=== PATIENT | male | born 1970 | race Caucasian/White ===

== ENCOUNTER 2018-06-16 06:29 | Inpatient (IN) | payer BC, OTHER ==
[2018-06-10 15:10] VITALS: BMI 35.7
[~2018-06-16 06:29] MED LIST: CEFAZOLIN 2 GM/D5W 2 GM/50 ML ML IVPB ONE; oxyCODONE HCL 10 MG SUSTAINED ACTING TABLET PO STA
[2018-06-16] MEDS ORDERED: oxyCODONE HCL 10 MG SUSTAINED ACTING TABLET ONE (06:59)
[2018-06-16] MEDS ORDERED: LIDOCAINE 1%/EPI 1:100000 (20 ML MULTI DOSE VIAL) ONE (07:11)
[2018-06-16] MEDS ORDERED: THROMBIN (BOVINE) 5,000 UNIT VIAL TP ONE ×3 (07:11→10:50)
[2018-06-16] MEDS ORDERED: GELATIN, ABSORBABLE 100 EACH SPONGE TP ONE (07:11)
--- NOTE | 2018-06-16 07:28 | HP ---
History & Physical Update - History History: No Change - Physical Physical: No Change - Assessment Assessment: No Change - Plan Plan: No Change (Initial H&P is located in his paper chart. No new complaints or medications. Here today for elective L5-S1 TLIF.)
[2018-06-16] MEDS ORDERED: SEVOFLURANE 250 ML BTL ONE (07:37)
[2018-06-16] MEDS ORDERED: BUPIVACAINE HCL/PF 0.5% (5MG/ML) 10 ML VIAL ONE (07:37)
[2018-06-16] MEDS ORDERED: ceFAZolin SODIUM 1 GM VIAL ONE ×2 (07:46→15:04)
[2018-06-16] MEDS ORDERED: SODIUM CHLORIDE 0.9% P/F 10 ML VIAL IJ ONE (07:46)
[2018-06-16] MEDS ORDERED: ONDANSETRON 4 MG/2 ML VIAL ONE (07:46)
[2018-06-16] MEDS ORDERED: DEXAMETHASONE SOD PHOSPHATE 4 MG/1 ML VIAL ONE (07:46)
[2018-06-16] MEDS ORDERED: BUPIVACAINE LIPOSOME/PF (EXPAREL) 266 MG/20 ML VIAL ONE (08:02)
[2018-06-16] MEDS ORDERED: BUPIVACAINE HCL/PF (5 MG/ML) 30 ML VIAL IJ ONE (08:02)
[2018-06-16] MEDS ORDERED: MIDAZOLAM HCL 2 MG/2 ML SINGLE DOSE VIAL ONE (08:02)
[2018-06-16] MEDS ORDERED: PROPOFOL 20 ML ONE (09:56)
[2018-06-16] MEDS ORDERED: LABETALOL HCL 5 MG/1 ML (100MG/20 ML VIAL) ONE (10:00)
[2018-06-16] MEDS ORDERED: BUPIVACAINE HCL 0.25% 125 MG/50 ML VIAL ONE (10:38)
[2018-06-16] MEDS ORDERED: DEXAMETHASONE SOD PHOSPHATE/PF 10 MG/ML SDV ONE (10:43)
[2018-06-16] MEDS ORDERED: oxyCODONE HCL 5 MG TABLET PO PRN ×3 (11:24→11:39)
[2018-06-16] MEDS ORDERED: ONDANSETRON 4 MG/2 ML VIAL IVPUSH PRN (11:24)
[2018-06-16] MEDS ORDERED: LACTATED RINGERS SOLUTION 1,000 ML IV SCH ×2 (11:30→11:45)
--- NOTE | 2018-06-16 11:37 | OP ---
Operative Note - Note: Operative Date: 06/16/18 Pre-Operative Diagnosis: L5/S1 spondylolithesis Operation: L5/S1 TLIF, allograft implant, neuromonitoring Post-Operative Diagnosis: Same as Pre-op Surgeon: Mohan Soler Helicopter Repairer: Wilman Cabello Anesthesiologist/DIVER ASSISTANT: Johnathon Jacques Anesthesia: Spinal Estimated Blood Loss (mls): 25 Fluid Volume Replaced (mls): 800 Operative Report Dictated: Yes
--- NOTE | 2018-06-16 11:38 | SURG ---
Surgery Asbestos Cement Sheet Supervisor Note Asbestos Cement Sheet Supervisor: Wilman Cabello PA-C Date of Service: 06/16/18 Diagnosis: L5/S1 spondylolithesis, with radiculopathy Procedure: L5/S1 TLIF, allograft implant and neuromonitoring I was present for the entirety of the operative procedure. For further detail, please refer to operative report. Visit type - Case Type Case Type: Scheduled - New patient This patient is new to me today: Yes Date on this admission: 06/16/18
--- NOTE | 2018-06-16 13:13 | OP ---
DATE OF OPERATION: 06/16/2018 PREOPERATIVE DIAGNOSES: 1. Spondylolisthesis, L5-S1. 2. Spinal stenosis. POSTOPERATIVE DIAGNOSES: 1. Spondylolisthesis, L5-S1. 2. Spinal stenosis. PROCEDURE PERFORMED: 1. Transforaminal lumbar interbody fusion, L5-S1. 2. Placement of instrumentation. 3. Placement of prosthetic cage. SURGEON: Mohan Soler MD INSURANCE BUSINESS ANALYST: RICHA Mckenzie ESTIMATED BLOOD LOSS: 50 mL. INTRAVENOUS FLUID: Per Anesthesia. ANESTHESIA: Spinal/TLIP. COMPLICATIONS: There were none. DISPOSITION: Patient brought to the PACU in stable condition. INDICATIONS FOR SURGERY: The patient is a 47-year-old gentleman who has been suffering from pain from his back down his legs. X-rays and MRI were completed, which noted that he had a spondylolisthesis at L5-S1 with stenosis at that level. He had gone through an exhaustive course of treatment which included medications, physical therapy, as well as injections. Unfortunately, his pain continued to persist despite all this. At this point, risks, benefits, and alternatives were discussed, and the patient consented to surgery. OPERATIVE NOTE: Patient was brought to the operating room by anesthesia staff. After appropriate patient identification was performed, spinal anesthesia was given along with a TLIP block. Patient was able to position himself prone onto the OR table with all areas of bony prominences well-padded at this time. Two needles were placed in his back. The L5-S1 pedicles were marked off with C-arm. Lidocaine, 10 mL, with epinephrine was injected into the back at this time. His back was prepped and draped in a sterile manner. At this point, a time-out was completed. An incision was made from the top of L5 down to the bottom of S1. Dissection was carried down to the fascia. Fascia was then split open at this time. The C-arm was brought in, and under C-arm guidance, trocars were advanced above the L5-S1 pedicles. Through the trocar, wires were inserted. Over the wires, tap was performed, which was inserted. On the left-hand side, retractor blades were set up to expose the L5-S1 facet joint. The facet joint was removed. The disc was entered using a series of pituitary, Kerrison rongeurs, and curettes. The discectomy was completed. The endplates were decorticated. Bone graft was laid down. A cage filled with bone graft was placed in. Tulip heads were placed over the screws. A ana was measured and placed in. Capsule was placed on, and final tightening was performed. On the right-hand side, a ana was measured and placed in. Capsule was placed on, and compression and final tightening was performed. AP and lateral x-rays confirmed the instrumentation to be in good position. The fascia was closed with a No. 1 Vicryl suture. The subcutaneous tissues were closed with 2-0 Vicryl suture. Skin was closed with 3-0 Monocryl suture. Dermabond was applied. Steri-Strips were applied. Sterile dressings were applied. Patient was placed supine on the OR bed and brought to the PACU in stable condition. Yecenia WILEY/[id number]
[2018-06-16 13:24] VITALS: TEMP 98.1
[2018-06-16] MEDS ORDERED: oxyCODONE HCL 5 MG TABLET ONE (14:51)
[2018-06-16] MEDS ORDERED: CEFAZOLIN 2 GM/D5W 2 GM/50 ML ML IVPB ONE (16:00)
[2018-06-16 16:42] VITALS: BP 155/90; PULSE 75
[2018-06-16] MEDS ORDERED: traMADol HCL 50 MG TABLET PO SCH (18:00)
[2018-06-16] MEDS ORDERED: diazePAM 2 MG TABLET PO SCH (22:00)
[2018-06-16] MEDS ORDERED: LABETALOL HCL 200 MG TABLET (FP) PO SCH (22:00)
[2018-06-16] MEDS ORDERED: MINOXIDIL 2.5 MG TABLET PO SCH (22:00)
[2018-06-17] MEDS ORDERED: FUROSEMIDE 40 MG TABLET (FP) PO SCH (10:00)
== END 2018-06-16 16:30 | disposition home or self-care (01) | DRG 304 ==
LOC: FM/S 06:29
PROVIDERS: ADMIT Orthopaedic Surgery Orthopaedic Surgery of the Spine; ATTEND Orthopaedic Surgery Orthopaedic Surgery of the Spine
PROC: 0SG30AJ Fusion of Lumbosacral Joint with Interbody Fusion Device, Posterior Approach, Anterior Column, Open Approach (ICD-10-PCS; principal; 2018-06-16 09:59)
DX: M43.17 Spondylolisthesis, lumbosacral region (principal); M48.07 Spinal stenosis, lumbosacral region; M54.17 Radiculopathy, lumbosacral region
CPT/HCPCS: 72100-TC-FY; 76001-TC-FY; 94760

== ENCOUNTER 2018-06-18 12:15 | Inpatient (IN) | payer OTHER ==
--- NOTE | 2018-06-18 12:23 | PDOC ---
Attending Attestation - Resident Resident Name: Lisa Garrido - ED Attending Attestation I have performed the following: I have examined & evaluated the patient, The case was reviewed & discussed with the resident, I agree w/resident's findings & plan, Exceptions are as noted - HPI HPI: 06/18/18 15:04 Worsening leg pain after outpatient spinal fusion 2 days ago. Pain is most prominent in the thighs bilaterally. Suggestive of muscle spasm. No back pain. No bowel or bladder symptoms, including incontinence or retention. No saddle anesthesia. Subjective muscle weakness in the legs making it impossible for him to bear weight and ambulate. - Physicial Exam PE: 06/18/18 15:06 Physical exam reveals somewhat anxious male but in no pain or other distress at rest, lying in stretcher. Examination of the back reveals no tenderness swelling erythema or other sign of inflammation of the lumbosacral spine There is no demonstrable sensory or motor deficit to either of the lower extremities. All symptoms are subjective Pulses are full Even after analgesics, the patient is still unable to stand or walk - Medical Decision Making 06/18/18 13:32 Spoke to surgeon, Dr. Martinez, by phone. Discussed the lack of neurological findings on examination, though it was emphasized that the patient's level of cooperation was limited and therefore the exam may not have produced completely accurate information. It was decided to do a CT and further evaluate depending on the results. We'll discuss again after the above results become available 06/18/18 15:07 Impression: CT is negative except for what appear to be chronic disc herniations and spinal stenosis. The hardware is intact. There is no obvious hematoma or abscess compressing the nerves or spine or over, contrast was not used. This was discussed with the surgeon Dr. Martinez. Plan: Because of intractable pain in the upper inability to bear weight or ambulate, admitted for pain control and further evaluation and treatment.
--- NOTE | 2018-06-18 12:24 | PDOC ---
History of Present Illness - General Chief Complaint: Pain Stated Complaint: BIBA PAIN TO LEGS, DIFF WALKING Time Seen by Provider: 06/18/18 12:24 History Source: Patient Exam Limitations: No Limitations - History of Present Illness Initial Comments: 06/18/18 12:45 48 year old male with PMH HTN s/p spinal fusion surgery x2 days ago presents to ED for bilateral lower extremity pain and weakness/numbness/tingling x2 days. He states he has had trouble walking on his own and cannot bear weight. He states he has not had a bowel movement since before the surgery. He denies fever , chills, nausea/vomiting, abdominal pain, urinary incontinence, genital numbness/tingling, chest pain, shortness of breath, lightheadedness, dizziness. He states he last took Valium 2 mg and 1 Percocet at 1000 today without relief of his symptoms. He stated yesterday he contacted Dr. Soler, who did the surgery, and he switched him from Toradol to Percocet. Allergies - NKDA Past History - Past Medical History Allergies/Adverse Reactions: Allergies Allergy/AdvReac Type Severity Reaction Status Date / Time No Known Allergies Allergy Verified 06/18/18 12:20 Home Medications: Ambulatory Orders Labetalol HCl [Normodyne -] 400 mg PO BID 05/10/18 Minoxidil [Minoxidil -] 10 mg PO HS 05/10/18 Diazepam [Valium] 2 mg PO TID PRN #24 tablet MDD 3 06/16/18 Furosemide 40 mg PO DAILY 06/16/18 Hydrocodone/Acetaminophen [Hydrocodone-Acetamin 5-325 mg] 1 each PO ASDIR PRN Anemia: Yes (RECEIVED IRON INFUSIONS LAST ONE 05/04/18) Asthma: No Cancer: No Cardiac Disorders: No CVA: No COPD: No CHF: No Dementia: No Diabetes: No GI Disorders: No (GERD) Disorders: No HTN: Yes (SEVERE HTN STATED BY PT, on new " water pill " but unsure of name) Hypercholesterolemia: No Liver Disease: No Seizures: No Thyroid Disease: No - Surgical History Abdominal Surgery: No Appendectomy: No Cardiac Surgery: No Cholecystectomy: No Lung Surgery: No Neurologic Surgery: No Orthopedic Surgery: Yes (LEFT KNEE ARTHROSCOPY, CTR RIGHT AND LEFT) - Suicide/Smoking/Psychosocial Hx Smoking History: Never smoked Have you smoked in the past 12 months: No Hx Alcohol Use: Yes (RARE) Drug/Substance Use Hx: No Substance Use Type: Alcohol Hx Substance Use Treatment: No Review of Systems - Review of Systems Able to Perform ROS?: Yes Comments:: 06/18/18 13:00 General: denies fever, chills, night sweats, generalized weakness. HEENT: denies sore throat, rhinorrhea, ear pain. Heart: denies chest pain, palpitations, syncope, lower extremity swelling, diaphoresis. Respiratory: denies shortness of breath, cough, sputum production, hemoptysis. Abdomen: denies abdominal pain, nausea, vomiting, diarrhea, constipation, blood in stool. : denies dysuria, increased urinary frequency, hematuria, urinary incontinence , flank pain. Back: denies back pain. Musculoskeletal: admits to bilateral generalized lower extremity pain. denies joint pain, joint swelling. Neurological: admits to numbness, tingling, weakness. denies headache, dizziness. Skin: denies rash, laceration, abrasion. *Physical Exam - Physical Exam Comments: 06/18/18 12:52 Constitutional: Well-nourished, Well-developed, appearing stated age. HEENT: head is normocephalic, atraumatic. EOMI. PERRLA. Neck: supple. Full ROM. Heart: regular rhythm. no murmurs, rubs or gallops. Lungs: clear to auscultation bilaterally. no crackles, rhonchi or wheezing. no stridor. Abdomen: soft, nontender. protuberant, no distension. normal bowel sounds. no rebound, guarding, masses. Back: no step offs to c-spine, t-spine, L-spine. dressing noted to L-spine area. no tenderness to palpation of mid-line c-spine, t-spine or L-spine. no paraspinal tenderness to palpation of c-spine, t-spine or L-spine. Extremities: Peripheral pulses intact and equal. No lower extremity edema. Neurological: Alert. Oriented x3. CN2-12 intact. 5/5 strength bilateral upper extremities. 5/5 plantar flexion of bilateral lower extremities. Pt is unable to lift straight leg off the examination table bilaterally. Full sensation all extremities and bilateral face. Psych: awake, alert, oriented x3. Follows commands. Answers questions appropriately. ED Treatment Course - LABORATORY CBC & Chemistry Diagram: 06/18/18 14:45 06/18/18 14:45 Medical Decision Making - Medical Decision Making 06/18/18 12:55 48 year old male with PMH HTN presented to ED for bilateral lower extremity pain /numbness/tingling/weakness s/p spinal fusion surgery x2 days ago. Initial Vital Signs Temp Pulse Resp BP Pulse Ox 97.9 F 92 H 18 144/85 98 06/18/18 12:15 06/18/18 12:15 06/18/18 12:15 06/18/18 12:15 06/18/18 12:[address] lumbar spine - no evidence of hematoma, abscess or any cord compression. hardware in place. central canal stenosis noted to L2-L3 and L3-L4. Disc herniation to L4-L5. Pt recieved toradol 60 mg injection without relief of symptoms. Pt is unable to bear weight. Pt will be admitted for intactible pain. - 1 Percocet ordered, last took 1 Percocet at 1000 today - 1 mg Ativan ordered, pt is anxious Attending spoke with Dr. Soler, who completed the patient's surgery x2 days ago , he said that pain like this is to be expected this many days post-op, but that if we cannot control his pain we should admit him to the hospital. Hospitalists paged. - CBC, CMP ordered for admission - CXR, EKG ordered for admission 06/18/18 15:22 EKG performed at 1519 - rate 72, regular rhythm, normal axis, normal intervals, lateral T-wave flattening. - no prior to compare - no chest pain, no shortness of breath, no palpitations - cardiac enzymes ordered CBC WBC 9.1 K/mm3 (4.0-10.8) 06/18/18 14:45 RBC 4.40 M/mm3 (4.00-5.60) 06/18/18 14:45 Hgb 11.4 GM/dl (11.7-16.9) L 06/18/18 14:45 Hct 35.0 % (35.4-49) L 06/18/18 14:45 MCV 79.5 fl (80-96) L 06/18/18 14:45 MCH 25.9 pg (25.7-33.7) 06/18/18 14:45 MCHC 32.5 g/dl (32.0-35.9) 06/18/18 14:45 RDW 22.2 % (11.9-15.9) H 06/18/18 14:45 Plt Count 271 K/MM3 (134-434) 06/18/18 14:45 MPV 9.1 fl (7.5-11.1) 06/18/18 14:45 Absolute Neuts (auto) 7.1 K/mm3 06/18/18 14:45 Neutrophils % 77.1 % (42.8-82.8) 06/18/18 14:45 Lymphocytes % 10.3 % (8-40) 06/18/18 14:45 Monocytes % 11.1 % (3.8-10.2) H 06/18/18 14:45 Eosinophils % 1.2 % (0-4.5) 06/18/18 14:45 Basophils % 0.3 % (0-2.0) 06/18/18 14:45 No leukocytosis. No anemia. CMP Sodium 137 mmol/L (136-145) 06/18/18 14:45 Potassium 3.9 mmol/L (3.5-5.1) 06/18/18 14:45 Chloride 104 mmol/L (98-107) 06/18/18 14:45 Carbon Dioxide 27 mmol/L (22-28) 06/18/18 14:45 Anion Gap 6 MMOL/L (8-16) L 06/18/18 14:45 BUN 26 mg/dl (7-18) H 06/18/18 14:45 Creatinine 1.0 mg/dl (0.6-1.3) 06/18/18 14:45 Creat Clearance w eGFR > 60 (>60) 06/18/18 14:45 Random Glucose 137 mg/dl (74-106) H 06/18/18 14:45 Calcium 8.7 mg/dl (8.4-10.2) 06/18/18 14:45 Total Bilirubin 1.2 mg/dl (0.2-1.0) H 06/18/18 14:45 AST 25 U/L (10-42) 06/18/18 14:45 ALT 26 U/L (10-40) 06/18/18 14:45 Alkaline Phosphatase 53 U/L (32-92) 06/18/18 14:45 Total Protein 6.5 g/dl (6.4-8.3) 06/18/18 14:45 Albumin 3.4 g/dl (3.5-5.0) L 06/18/18 14:45 No electrolyte abnormalities. No acute kidney injury. Mild hyperglycemia. - Not fasting No transaminitis. Troponin normal. INR, PTT INR 1.34 (0.82-1.09) H 06/18/18 14:45 06/18/18 15:44 Pt reassessed, sleeping. 06/18/18 16:16 I spoke with Tash Harrington about the case. Pt will be admitted under observation for intractable pain under Dr. Hampton's care. *DC/Admit/Observation/Transfer Diagnosis at time of Disposition: Intractable pain, History of spinal fusion - Discharge Dispostion Condition at time of disposition: Stable Decision to Admit order: Yes - Referrals - Patient Instructions - Post Discharge Activity
[2018-06-18] MEDS ORDERED: KETOROLAC TROMETHAMINE 60 MG/2 ML VIAL IM ONE (12:56)
[2018-06-18] MEDS ORDERED: KETOROLAC TROMETHAMINE 60 MG/2 ML VIAL ONE (12:57)
[2018-06-18] MEDS ORDERED: LORazepam 1 MG TABLET PO ONE (14:35)
[2018-06-18] MEDS ORDERED: LORazepam 0.5 MG TABLET ONE (14:50)
[2018-06-18 15:10] LABS: BASO % 0.3 % (0-2.0); EOS % 1.2 % (0-4.5); HEMOGLOBIN 11.4 GM/dl (11.7-16.9); LYMPH % 10.3 % (8-40); MCH 25.9 pg (25.7-33.7); MCHC 32.5 g/dl (32.0-35.9); MEAN CELL VOLUME 79.5 fl (80-96); MEAN PLT VOLUME 9.1 fl (7.5-11.1); MONO % 11.1 % (3.8-10.2); NEUT % 77.1 % (42.8-82.8); PLATELET COUNT 271 K/MM3 (134-434); RDW 22.2 % (11.9-15.9); WHITE BLOOD COUNT 9.1 K/mm3 (4.0-10.8)
[2018-06-18 15:13] LABS: INR 1.34 (0.82-1.09); PROTHROMBIN TIME (PATIENT) 14.9 SEC (10.2-13.0)
[2018-06-18 15:18] LABS: ALBUMIN 3.4 g/dl (3.5-5.0); ALK PHOS 53 U/L (32-92); ANION GAP 6 MMOL/L (8-16); BILIRUBIN,TOTAL 1.2 mg/dl (0.2-1.0); BLOOD UREA NITROGEN 26 mg/dl (7-18); CALCIUM 8.7 mg/dl (8.4-10.2); CHLORIDE 104 mmol/L (98-107); CO2 27 mmol/L (22-28); GLUCOSE,RANDOM 137 mg/dl (74-106); POTASSIUM 3.9 mmol/L (3.5-5.1); SGOT/AST 25 U/L (10-42); SGPT/ALT 26 U/L (10-40); SODIUM 137 mmol/L (136-145); TOT PROT 6.5 g/dl (6.4-8.3)
[2018-06-18] MEDS: FUROSEMIDE 40 MG TABLET (FP) PO SCH (16:30)
[2018-06-18] MEDS ORDERED: diazePAM 2 MG TABLET PO PRN (16:30)
[2018-06-18] MEDS ORDERED: oxyCODONE HCL 5 MG TABLET PO PRN (16:34)
[2018-06-18] MEDS ORDERED: ACETAMINOPHEN 325 MG TABLET (FP) PO SCH (16:45)
[2018-06-18 17:39] VITALS: BMI 38.2
[2018-06-18] MEDS: ACETAMINOPHEN 325 MG TABLET (FP) PO PRN (21:16)
[2018-06-18] MEDS: LABETALOL HCL 200 MG TABLET (FP) PO SCH (21:16)
[2018-06-18] MEDS: MINOXIDIL 10 MG TABLET PO SCH (21:16)
--- NOTE | 2018-06-18 21:38 | HP ---
CHIEF COMPLAINT: Pain, weakness/numbness/tingling in both legs for the past 2 days since having outpatient spinal fusion. PCP: HISTORY OF PRESENT ILLNESS: 48 year old male with a PMH significant for HTN, Anemia, L5/S1 spondylolithesis s/p spinal fusion 2 days ago presented to [place] ED c/o worsening left leg pain and weakness. He states he was able to walk directly following the procedure felt a sharp pain as soon as he started to climb the stairs when he arrived at home. He describes the pain as a sharp constant pain which radiates the along the whole length of his posterior left leg when he bears weight on his left foot. He was prescribed Tramadol and Valium post op which he reports did not control his pain. He called his surgeon Dr. Martinez and he switched the Tramadol to Percocet. Patient reports that the Percocet did not help him. He was brought by ambulance to the ED this morning when he could no longer stand the pain. Upon admission, he was given Percocet 5/325 x 1 and Torodol 60 mg IM when he reports helped temporarily resolve his pain. He was also given 1 mg of Ativan for anxiety. He reports he was sleeping for most of the evening until he woke up about 15 minutes ago and his pain had returned. Denies fever, chills, light-headedness, dizziness, SOB, n/v, abdominal pain. Denies numbness, tingling, or saddle anesthesia. Denies bowel or urinary incontinence. Denies back pain. ER course was notable for: (1) Percocet 5/325 x 1, Torodol 60 mg IM, and Ativan 1 mg Recent Travel: No PAST MEDICAL HISTORY: HTN Anemia L5/S1 spondylolithesis s/p spinal fusion 2 days ago PAST SURGICAL HISTORY: L5/S1 TLIF with allograft implant, Left knee arthroscopy Social History: Smoking: Never Alcohol: Occasional Drugs: No Family History: Allergies No Known Allergies Allergy (Verified 06/18/18 12:20) HOME MEDICATIONS: Home Medications Medication Instructions Recorded Labetalol HCl [Normodyne -] 400 mg PO BID 05/10/18 Minoxidil [Minoxidil -] 10 mg PO HS 05/10/18 Diazepam [Valium] 2 mg PO TID PRN #24 tablet MDD 3 06/16/18 Furosemide 40 mg PO DAILY 06/16/18 Hydrocodone/Acetaminophen 1 each PO ASDIR PRN 06/18/18 [Hydrocodone-Acetamin 5-325 mg] REVIEW OF SYSTEMS CONSTITUTIONAL: Absent: fever, chills, diaphoresis, generalized weakness, malaise, loss of appetite, weight change HEENT: Absent: rhinorrhea, nasal congestion, throat pain, throat swelling, difficulty swallowing, mouth swelling, ear pain, eye pain, visual changes CARDIOVASCULAR: Absent: chest pain, syncope, palpitations, irregular heart rate, lightheadedness , peripheral edema RESPIRATORY: Absent: cough, shortness of breath, dyspnea with exertion, orthopnea, wheezing, stridor, hemoptysis GASTROINTESTINAL: Absent: abdominal pain, abdominal distension, nausea, vomiting, diarrhea, constipation, melena, hematochezia GENITOURINARY: Absent: dysuria, frequency, urgency, hesitancy, hematuria, flank pain, genital pain MUSCULOSKELETAL: +left leg weakness and pain Absent: myalgia, arthralgia, joint swelling, back pain, neck pain SKIN: Absent: rash, itching, pallor HEMATOLOGIC/IMMUNOLOGIC: Absent: easy bleeding, easy bruising, lymphadenopathy, frequent infections ENDOCRINE: Absent: unexplained weight gain, unexplained weight loss, heat intolerance, cold intolerance NEUROLOGIC: Absent: headache, focal weakness or paresthesias, dizziness, unsteady gait, seizure, mental status changes, bladder or bowel incontinence PSYCHIATRIC: Absent: anxiety, depression, suicidal or homicidal ideation, hallucinations. PHYSICAL EXAMINATION Vital Signs - 24 hr 06/18/18 06/18/18 06/18/18 12:15 16:39 17:26 Temperature 97.9 F 98.1 F 98.4 F Pulse Rate 92 H 77 Pulse Rate [ 77 Left Apical] Respiratory 18 16 16 Rate Blood Pressure 144/85 147/90 Blood Pressure 129/88 [Left Arm] O2 Sat by Pulse 98 98 96 Oximetry (%) 06/18/18 20:42 Temperature Pulse Rate Pulse Rate [ Left Apical] Respiratory Rate Blood Pressure Blood Pressure [Left Arm] O2 Sat by Pulse 96 Oximetry (%) GENERAL: Awake, alert, and fully oriented, appears uncomfortable HEAD: Normal with no signs of trauma. EYES: Pupils equal, round and reactive to light, extraocular movements intact, sclera anicteric, conjunctiva clear. No lid lag. EARS, NOSE, THROAT: nares patent, oropharynx clear without exudates. Moist mucous membranes. NECK: Normal range of motion, supple without lymphadenopathy, JVD, or masses. LUNGS: Breath sounds equal, clear to auscultation bilaterally. No wheezes, and no crackles. No accessory muscle use. HEART: Regular rate and rhythm, normal S1 and S2 without murmur, rub or gallop. ABDOMEN: Soft, nontender, not distended, normoactive bowel sounds, no guarding, no rebound, no masses. No hepatomegaly or splenomegaly. MUSCULOSKELETAL: DPD over lumbar spine, no strike-through. No erythema, drainage , or swelling to surrounding tissue. No pain with flexion, extension or raising of left leg No bony deformities or tenderness. No CVA tenderness. UPPER EXTREMITIES: 2+ pulses, warm, well-perfused. No cyanosis. No clubbing. No peripheral edema. LOWER EXTREMITIES: 2+ pulses, warm, well-perfused. No calf tenderness. No peripheral edema. NEUROLOGICAL: Light touch, pinprick, sense intact to b/l LE. Cranial nerves II- XII intact. Normal speech. Gait not observed PSYCHIATRIC: Cooperative. Good eye contact. Appropriate mood and affect. SKIN: Warm, dry, normal turgor, no rashes or lesions noted, normal capillary refill. Laboratory Results - last 24 hr 06/18/18 06/18/18 06/18/18 14:45 14:45 14:45 WBC 9.1 RBC 4.40 Hgb 11.4 L Hct 35.0 L MCV 79.5 L MCH 25.9 MCHC 32.5 RDW 22.2 H Plt Count 271 MPV 9.1 Absolute Neuts (auto) 7.1 Neutrophils % 77.1 Lymphocytes % 10.3 Monocytes % 11.1 H Eosinophils % 1.2 Basophils % 0.3 PT with INR INR PTT (Actin FS) 29.4 Sodium 137 Potassium 3.9 Chloride 104 Carbon Dioxide 27 Anion Gap 6 L BUN 26 H Creatinine 1.0 Creat Clearance w eGFR > 60 Random Glucose 137 H Calcium 8.7 Total Bilirubin 1.2 H AST 25 ALT 26 Alkaline Phosphatase 53 Creatine Kinase Creatine Kinase Index CK-MB (CK-2) Troponin I Total Protein 6.5 Albumin 3.4 L 06/18/18 06/18/18 06/18/18 14:45 15:23 15:23 WBC RBC Hgb Hct MCV MCH MCHC RDW Plt Count MPV Absolute Neuts (auto) Neutrophils % Lymphocytes % Monocytes % Eosinophils % Basophils % PT with INR 14.9 H INR 1.34 H PTT (Actin FS) Sodium Potassium Chloride Carbon Dioxide Anion Gap BUN Creatinine Creat Clearance w eGFR Random Glucose Calcium Total Bilirubin AST ALT Alkaline Phosphatase Creatine Kinase 899 H Creatine Kinase Index 0.5 CK-MB (CK-2) 5.1 H Troponin I < 0.03 Total Protein Albumin CXR: Unremarkable for acute chest pathology ECG: Did not indicative of acute ischemic event Lumbar Spine CT (without contrast): No fracture or hardware defect visualized ASSESSMENT/PLAN: 48 year old male with a PMH significant for HTN, Anemia, L5/S1 spondylolithesis s/p spinal fusion 2 days ago presented to [place] ED c/o worsening left leg pain and weakness. He was admitted for observation for pain management. Leg Pain/Weakness/Numbness --Baclofen 10 mg TID --Torodol 30 mg IVP Q8HRS --Oxycodone 5 mg PO q4H PRN for pain > 6-10 --Acetaminophen 650 mg PO Q6H PRN for pain < 1-5 --Discontinue Valium --PT ordered HTN --147/90 upon admission --Start Labetalol 400 mg PO BID --Continue Lasix 40 mp PO qday --Continue Minoxidil 10 mg PO QHS --Monitor BP FEN --PO intake adequate --Electrolytes replete as indicated --Low sodium diet DVT Prophylaxis --SCDs, OOB, ambulation --Mechanical prophylaxis only Dispo: pt currently requires further inpatient observation. FULL CODE Visit type - Emergency Visit Emergency Visit: Yes ED Registration Date: 06/20/18 Care time: The patient presented to the Emergency Department on the above date and was hospitalized for further evaluation of their emergent condition. - New Patient This patient is new to me today: Yes Date on this admission: 06/21/18 - Critical Care Critical Care patient: No
[2018-06-18] MEDS ORDERED: BACLOFEN 10 MG TABLET (FP) PO ONE (22:57)
[2018-06-18] MEDS: KETOROLAC TROMETHAMINE 30 MG/1 ML VIAL IVPUSH SCH (23:10)
[2018-06-18] MEDS ORDERED: ENOXAPARIN NA (PORCINE) 40 MG/0.4 ML DISP.SYRIN SQ STA (23:13)
[2018-06-19] MEDS: oxyCODONE HCL 5 MG TABLET PO PRN ×3 (03:33→16:49)
[2018-06-19] MEDS: ACETAMINOPHEN 325 MG TABLET (FP) PO PRN ×3 (03:34→16:50)
[2018-06-19] MEDS: KETOROLAC TROMETHAMINE 30 MG/1 ML VIAL IVPUSH SCH ×3 (05:49→21:22)
--- NOTE | 2018-06-19 08:27 | PN ---
Progress Note (short form) - Note Progress Note: Received a phone call from the floor last night regarding order for Lovenox Spoke with patients surgeon/my attending, Dr. Soler regarding this Dr. Soler requested to discontinue Lovenox order Order discontinued
[2018-06-19 09:50] LABS: BASO % 0.6 % (0-2.0); EOS % 2.8 % (0-4.5); HEMATOCRIT 33.4 % (35.4-49); LYMPH % 16.9 % (8-40); MCH 26.5 pg (25.7-33.7); MCHC 32.9 g/dl (32.0-35.9); MEAN CELL VOLUME 80.4 fl (80-96); MEAN PLT VOLUME 9.6 fl (7.5-11.1); MONO % 11.1 % (3.8-10.2); NEUT % 68.6 % (42.8-82.8); PLATELET COUNT 242 K/MM3 (134-434); RBC 4.15 M/mm3 (4.00-5.60); RDW 22.2 % (11.9-15.9); WHITE BLOOD COUNT 5.5 K/mm3 (4.0-10.8)
[2018-06-19 09:59] LABS: ALBUMIN 3.3 g/dl (3.5-5.0); ALK PHOS 53 U/L (32-92); ANION GAP 8 MMOL/L (8-16); BILIRUBIN,TOTAL 1.4 mg/dl (0.2-1.0); BLOOD UREA NITROGEN 28 mg/dl (7-18); CALCIUM 8.9 mg/dl (8.4-10.2); CHLORIDE 103 mmol/L (98-107); CO2 27 mmol/L (22-28); GLUCOSE,RANDOM 89 mg/dl (74-106); POTASSIUM 4.2 mmol/L (3.5-5.1); SGOT/AST 25 U/L (10-42); SGPT/ALT 29 U/L (10-40); SODIUM 138 mmol/L (136-145); TOT PROT 6.3 g/dl (6.4-8.3)
[2018-06-19] MEDS ORDERED: ENOXAPARIN NA (PORCINE) 40 MG/0.4 ML DISP.SYRIN SQ SCH (10:00)
[2018-06-19] MEDS: LABETALOL HCL 200 MG TABLET (FP) PO SCH ×2 (10:15→21:22)
[2018-06-19] MEDS: FUROSEMIDE 40 MG TABLET (FP) PO SCH (10:19)
--- NOTE | 2018-06-19 10:48 | EKG ---
Test Reason : Blood Pressure : / mmHG Vent. Rate : 072 BPM Atrial Rate : 072 BPM P-R Int : 158 ms QRS Dur : 096 ms QT Int : 394 ms P-R-T Axes : 041 023 040 degrees QTc Int : 431 ms NORMAL SINUS RHYTHM POSSIBLE LEFT ATRIAL ENLARGEMENT NONSPECIFIC T WAVE ABNORMALITY ABNORMAL ECG NO PREVIOUS ECGS AVAILABLE Confirmed by SELVIN PRINGLE MD ([id number]) on 06/19/2018 10:48:05 AM Referred By: DENIS ADAMS Confirmed By:SELVIN PRINGLE MD
[2018-06-19] MEDS ORDERED: BISACODYL 5 MG TABLET.DR (FP) PO ONE (14:11)
[2018-06-19] MEDS ORDERED: LORazepam 1 MG TABLET PO PRN (14:15)
--- NOTE | 2018-06-19 14:18 | PN ---
Physical Exam: SUBJECTIVE: Patient seen and examined. He is tearful this morning thinks he wont walk again, additionally complains of LLE pain and a stretching feeling in his back when he brings it forward to chest. Left leg has improved OBJECTIVE: Vital Signs Period Temp Pulse Resp BP Sys/Crane Pulse Ox Last 24 Hr 97.4 F-98.6 F 44-85 16-18 129-178/77-101 96-98 PE Neuro: alert, awake, cn 2-12intact le 5/5 motor Pulm: CTAB CV: s1 s2 rrr Abd: s nt nd +bs Ext: no le edema Laboratory Results - last 24 hr 06/18/18 06/18/18 06/18/18 14:45 14:45 14:45 WBC 9.1 RBC 4.40 Hgb 11.4 L Hct 35.0 L MCV 79.5 L MCH 25.9 MCHC 32.5 RDW 22.2 H Plt Count 271 MPV 9.1 Absolute Neuts (auto) 7.1 Neutrophils % 77.1 Lymphocytes % 10.3 Monocytes % 11.1 H Eosinophils % 1.2 Basophils % 0.3 PT with INR INR PTT (Actin FS) 29.4 Sodium 137 Potassium 3.9 Chloride 104 Carbon Dioxide 27 Anion Gap 6 L BUN 26 H Creatinine 1.0 Creat Clearance w eGFR > 60 Random Glucose 137 H Calcium 8.7 Magnesium Total Bilirubin 1.2 H AST 25 ALT 26 Alkaline Phosphatase 53 Creatine Kinase Creatine Kinase Index CK-MB (CK-2) Troponin I Total Protein 6.5 Albumin 3.4 L 06/18/18 06/18/18 06/18/18 14:45 15:23 15:23 WBC RBC Hgb Hct MCV MCH MCHC RDW Plt Count MPV Absolute Neuts (auto) Neutrophils % Lymphocytes % Monocytes % Eosinophils % Basophils % PT with INR 14.9 H INR 1.34 H PTT (Actin FS) Sodium Potassium Chloride Carbon Dioxide Anion Gap BUN Creatinine Creat Clearance w eGFR Random Glucose Calcium Magnesium Total Bilirubin AST ALT Alkaline Phosphatase Creatine Kinase 899 H Creatine Kinase Index 0.5 CK-MB (CK-2) 5.1 H Troponin I < 0.03 Total Protein Albumin 06/19/18 06/19/18 07:00 07:00 WBC 5.5 RBC 4.15 Hgb 11.0 L Hct 33.4 L MCV 80.4 MCH 26.5 MCHC 32.9 RDW 22.2 H Plt Count 242 MPV 9.6 Absolute Neuts (auto) 3.8 Neutrophils % 68.6 Lymphocytes % 16.9 D Monocytes % 11.1 H Eosinophils % 2.8 D Basophils % 0.6 PT with INR INR PTT (Actin FS) Sodium 138 Potassium 4.2 Chloride 103 Carbon Dioxide 27 Anion Gap 8 BUN 28 H Creatinine 1.0 Creat Clearance w eGFR > 60 Random Glucose 89 D Calcium 8.9 Magnesium 2.0 Total Bilirubin 1.4 H AST 25 ALT 29 Alkaline Phosphatase 53 Creatine Kinase Creatine Kinase Index CK-MB (CK-2) Troponin I Total Protein 6.3 L Albumin 3.3 L Active Medications Generic Name Dose Route Start Last Admin Trade Name Freq PRN Reason Stop Dose Admin Acetaminophen 650 mg 06/18/18 16:37 06/19/18 10:15 Tylenol - PO 650 mg Q6H PRN Administration PAIN LEVEL 1-5 Bisacodyl 5 mg 06/19/18 14:11 Dulcolax - PO 06/19/18 14:12 ONCE ONE Docusate Sodium 100 mg 06/19/18 14:15 Colace - PO TID DEYANIRA Furosemide 40 mg 06/18/18 16:30 06/19/18 10:19 Lasix - PO Not Given DAILY DEYANIRA Ketorolac Tromethamine 30 mg 06/18/18 23:00 06/19/18 13:40 Toradol Injection - IVPUSH 06/23/18 22:59 Not Given TID DEYANIRA Labetalol HCl 400 mg 06/18/18 22:00 06/19/18 10:15 Normodyne - PO 400 mg BID DEYANIRA Administration Minoxidil 10 mg 06/18/18 22:00 06/18/18 21:16 Loniten - PO 10 mg HS DEYANIRA Administration Oxycodone HCl 5 mg 06/18/18 16:36 06/19/18 10:16 Roxicodone - PO 5 mg Q4H PRN Administration PAIN LEVEL 6-10 Polyethylene Glycol 17 gm 06/19/18 14:15 Miralax (For Daily Use) - PO DAILY DEYANIRA Senna 1 tab 06/19/18 22:00 Senna - PO HS DEYANIRA Assessment: 48 year old male with a PMH significant for HTN, Anemia, L5/S1 spondylolithesis s/p spinal fusion 2 days ago presented to [place] ED c/o worsening left leg pain and weakness admitted for pain management. Plan: 1. Leg Pain/Weakness/Numbness - Baclofen 10 mg TID - Torodol 30 mg IVP TID - Oxycodone 5 mg PO q4H PRN for pain > 6-10 - Acetaminophen 650 mg PO Q6H PRN for pain < 1-5 - Discontinue Valium - PT ordered - Dr. Martinez consulted 2. HTN - Elevated, however pt very agitated and in pain - Continue Labetalol 400 mg PO BID - Continue Lasix 40 mp PO qday - Continue Minoxidil 10 mg PO QHS 3. Constipation - Started bowel regimen 4. DVT Prophylaxis --SCDs, OOB, ambulation --Mechanical prophylaxis only Dispo: pt currently requires further inpatient observation. FULL CODE Visit type - Emergency Visit Emergency Visit: Yes ED Registration Date: 06/18/18 Care time: The patient presented to the Emergency Department on the above date and was hospitalized for further evaluation of their emergent condition. - New Patient This patient is new to me today: Yes Date on this admission: 06/19/18 - Critical Care Critical Care patient: No - Discharge Referral Referred to [facility] Med P.C.: No
[2018-06-19] MEDS: POLYETHYLENE GLYCOL 3350 119 GM BTL PO SCH (15:35)
[2018-06-19] MEDS: SODIUM CHLORIDE 0.45% 1,000 ML IV SCH (15:35)
[2018-06-19] MEDS: DOCUSATE SODIUM 100 MG CAPSULE (FP) PO SCH ×2 (15:35→21:22)
[2018-06-19] MEDS: SENNOSIDES 8.6MG TABLET (FP) PO SCH (21:22)
[2018-06-19] MEDS: MINOXIDIL 10 MG TABLET PO SCH (21:22)
[2018-06-20] MEDS: oxyCODONE HCL 5 MG TABLET PO PRN ×4 (00:48→21:00)
[2018-06-20] MEDS: ACETAMINOPHEN 325 MG TABLET (FP) PO PRN ×3 (00:48→15:42)
[2018-06-20] MEDS: DOCUSATE SODIUM 100 MG CAPSULE (FP) PO SCH ×3 (05:14→21:46)
[2018-06-20] MEDS: KETOROLAC TROMETHAMINE 30 MG/1 ML VIAL IVPUSH SCH ×3 (05:16→21:48)
[2018-06-20] MEDS ORDERED: LORazepam 0.5 MG TABLET PO PRN (07:51)
[2018-06-20] MEDS: diazePAM 5 MG TABLET PO SCH ×2 (08:23→15:43)
[2018-06-20] MEDS: LABETALOL HCL 200 MG TABLET (FP) PO SCH ×2 (09:19→21:47)
[2018-06-20] MEDS: POLYETHYLENE GLYCOL 3350 119 GM BTL PO SCH (09:20)
[2018-06-20] MEDS: FUROSEMIDE 40 MG TABLET (FP) PO SCH (09:20)
--- NOTE | 2018-06-20 11:30 | PN ---
Physical Exam: SUBJECTIVE: Patient seen and examined, patient reports he is unable to stand secondary to pain, patient denies any saddle anesthesia, voiding into a urinal independently. OBJECTIVE: patient is a 48 year old male with a PMH significant for HTN, Anemia , L5/S1 spondylolithesis s/p spinal fusion 06/16/18 (Dr Soler) Vital Signs Period Temp Pulse Resp BP Sys/Crane Pulse Ox Last 24 Hr 97.9 F-98.4 F 77-88 16-18 138-163/69-98 98-99 GENERAL: The patient is awake, alert, and fully oriented, in no acute distress. HEAD: Normal with no signs of trauma. EYES: PERRL, extraocular movements intact, sclera anicteric, conjunctiva clear. No ptosis. ENT: Ears normal, nares patent, oropharynx clear without exudates, moist mucous membranes. NECK: Trachea midline, full range of motion, supple. LUNGS: Breath sounds equal, clear to auscultation bilaterally, no wheezes, no crackles, no accessory muscle use. HEART: Regular rate and rhythm, S1, S2 without murmur, rub or gallop. ABDOMEN: Soft, nontender, nondistended, normoactive bowel sounds, no guarding, no rebound, no hepatosplenomegaly, no masses. EXTREMITIES: 2+ pulses, warm, well-perfused, no edema. NEUROLOGICAL: Cranial nerves II through XII grossly intact. Normal speech, gait not observed. PSYCH: Normal mood, normal affect. SKIN: surgial site to distal lumbar spine, steri-strips intact, no erythema no drainage noted, Warm, dry, normal turgor, no rashes or lesions noted Laboratory Results - last 24 hr 06/20/18 07:30 Creatine Kinase 303 Creatine Kinase Index 0.4 CK-MB (CK-2) 1.5 Active Medications Generic Name Dose Route Start Last Admin Trade Name Freq PRN Reason Stop Dose Admin Acetaminophen 650 mg 06/18/18 16:37 06/20/18 09:18 Tylenol - PO 650 mg Q6H PRN Administration PAIN LEVEL 1-5 Diazepam 5 mg 06/20/18 08:00 06/20/18 08:23 Valium - PO 06/21/18 08:01 5 mg Q8H DEYANIRA Administration Docusate Sodium 100 mg 06/19/18 14:15 06/20/18 05:14 Colace - PO 100 mg TID DEYANIRA Administration Furosemide 40 mg 06/18/18 16:30 06/20/18 09:20 Lasix - PO 40 mg DAILY DEYANIRA Administration Sodium Chloride 1,000 mls @ 83 mls/hr 06/19/18 14:30 06/19/18 15:35 1/2 Normal Saline IV 83 mls/hr ASDIR DEYANIRA Administration Ketorolac Tromethamine 30 mg 06/18/18 23:00 06/20/18 05:16 Toradol Injection - IVPUSH 06/23/18 22:59 30 mg TID DEYANIRA Administration Labetalol HCl 400 mg 06/18/18 22:00 06/20/18 09:19 Normodyne - PO 400 mg BID DEYANIRA Administration Minoxidil 10 mg 06/18/18 22:00 06/19/18 21:22 Loniten - PO 10 mg HS DEYANIRA Administration Oxycodone HCl 5 mg 06/18/18 16:36 06/20/18 09:19 Roxicodone - PO 5 mg Q4H PRN Administration PAIN LEVEL 6-10 Polyethylene Glycol 17 gm 06/19/18 14:15 06/20/18 09:20 Miralax (For Daily Use) - PO 17 gm DAILY DEYANIRA Administration Senna 1 tab 06/19/18 22:00 06/19/18 21:22 Senna - PO 1 tab HS DEYANIRA Administration ASSESSMENT/PLAN: 1.MS sciatica - discussed with Dr Soler, start neurontin and decadron - continue torodol 30 mg IVP TID, Oxycodone 5 mg PO q4H PRN for pain > 6-10, Acetaminophen 650 mg PO Q6H PRN for pain < 1-5 - appreciate physical therapy eval - Dr. Martinez consulted and following 2. HTN - Elevated, maybe secondary to pain - Continue Labetalol 400 mg PO BID - Continue Lasix 40 mp PO qday - Continue Minoxidil 10 mg PO QHS 3. Constipation - continue bowel regimen 4. DVT Prophylaxis --SCDs, OOB, ambulation --Mechanical prophylaxis only Dispo: pt currently requires further inpatient observation. FULL CODE Visit type - Emergency Visit Emergency Visit: Yes ED Registration Date: 06/20/18 Care time: The patient presented to the Emergency Department on the above date and was hospitalized for further evaluation of their emergent condition. - New Patient This patient is new to me today: Yes Date on this admission: 06/20/18 - Critical Care Critical Care patient: No - Discharge Referral Referred to [facility] Med P.C.: No
[2018-06-20] MEDS ORDERED: DEXAMETHASONE SOD PHOSPHATE 10 MG/1 ML VIAL IVPUSH ONE (12:00)
[2018-06-20 12:59] LABS: URINE APPEARANCE Clear; URINE BILIRUBIN Negative (NEGATIVE); URINE COLOR Yellow; URINE GLUCOSE (UA) Negative (NEGATIVE); URINE KETONE Negative (NEGATIVE); URINE LEUK ESTERASE Negative (NEGATIVE); URINE NITRITE Negative (NEGATIVE); URINE PROTEIN Negative (NEGATIVE); URINE UROBILINOGEN 0.2 (0.2-1.0)
[2018-06-20] MEDS: GABAPENTIN 300 MG CAPSULE (FP) PO SCH ×2 (13:07→21:47)
--- NOTE | 2018-06-20 14:10 | PN ---
Progress Note (short form) - Note Progress Note: Patient seen and examined eariler today by myself and later by Dr. Soler. The patient states that he developed pain left>right leg and back after his surgery. He denies any difficulty urinating and had a bowel movement since surgery. His pain is mostly a throbbing pain in his left hamstring. He denies any fever or chills. The patient was originally prescribed tramadol and then percocet when his pain wasn't relieved with tramadol. No numbness or tingling to his lower extremitities. He has pain with raising his leg. Vital Signs Period Temp Pulse Resp BP Sys/Crane Pulse Ox Last 24 Hr 97.9 F-98.4 F 77-88 16-18 138-163/69-98 98-99 GEN: appears comfortable, resting in bed Back: dressing removed/aquacel. Incision c/d/i. No drainage, erythema or masses noted. Neuro: 5/5 dorsi/plantar flexion b/l. Sensation intact b/l. CBC, BMP 06/19/18 07:00 06/19/18 07:00 A/p: 48 yo male left leg pain s/p TLIF L5-S1, POD#[address] Soler and recommend IV solumedrol 10mg x1 and will begin gabapentin 300mg TID Added valium for pain relief Physical Therapy treatment <Lisa Valle - Last Filed: 06/20/18 15:46> - Note Progress Note: Patient seen and examined Agree with above Patient with left leg pain Instrumentation appears to be in stable position We will start him on neurontin for his pain <Mohan Soler - Last Filed: 06/23/18 11:58>
[2018-06-20] MEDS: SODIUM CHLORIDE 0.45% 1,000 ML IV SCH (15:00)
[2018-06-20] MEDS ORDERED: PT OWN MED DRAWER 7, Y5N ONE (21:30)
[2018-06-20] MEDS: SENNOSIDES 8.6MG TABLET (FP) PO SCH (21:48)
[2018-06-20] MEDS: MINOXIDIL 10 MG TABLET PO SCH (22:06)
[2018-06-21] MEDS: KETOROLAC TROMETHAMINE 30 MG/1 ML VIAL IVPUSH SCH (06:05)
[2018-06-21] MEDS: GABAPENTIN 300 MG CAPSULE (FP) PO SCH ×3 (06:05→21:51)
[2018-06-21] MEDS: DOCUSATE SODIUM 100 MG CAPSULE (FP) PO SCH ×3 (06:05→21:52)
--- NOTE | 2018-06-21 07:41 | PN ---
Progress Note (short form) - Note Progress Note: POD#5 Pt states that he slept all night and was comfortable. Yesterday when he attempted to get out of bed he felt pain to his posterior thigh/buttock with sitting and was unable to get up with PT. This am the pain is better and he remains comfortable while resting in bed and able to move his leg. He feels a little pain in his left hamstring when flexing at the hip and with straight leg raise. Vital Signs Period Temp Pulse Resp BP Sys/Crane Pulse Ox Last 24 Hr 97.7 F-98.1 F 77-89 17-19 137-190/64-104 96-99 GEN: Appears comfortable Back: incision c/d/i with 4x4 gauze/tegaderm LE: No calf tenderness or swelling noted b/l. 5/5 dorsi/platnar/EHL b/l/no pain. Quad strength 5/5 b/l. Pain with straight leg raise 45 degrees off of bed. A/p: 48 yo male s/p TLIF L5-S1 with pain to left leg Some pain relief after steroids. Will try 2nd dose today and increase gabapentin. Physical therapy today after valium/steroids Discontinue IVF D/w Dr. Soler and will continue to monitor the patient and treat the patient with a multifocal pain approach. Narcotics/gabapentin/muscle relaxants and toradol/tylenol as needed If pain not relieved in the next few days, he will consider possible Left L5 screw revision. <Lisa Valle - Last Filed: 06/21/18 08:49> - Note Progress Note: Patient admitted for pain in back and left leg Neuro exam : 5/5 strength in his B/L lE [place] some relief with valium and neurontin Will continue with neurontin and see how he does <Mohan Soler - Last Filed: 06/21/18 16:44>
[2018-06-21 07:51] LABS: BASO % 0.1 % (0-2.0); HEMOGLOBIN 11.6 GM/dl (11.7-16.9)
--- NOTE | 2018-06-21 07:52 | PN ---
Physical Exam: SUBJECTIVE: Patient seen and examined, at bedside, patient was unable to ambulate with physical therapy secondary to pain, patient denies any saddle anesthesia, denies any difficulty with bowel or bladder patterns. OBJECTIVE: patient is a 48 year old male with a PMH significant for HTN, Anemia , L5/S1 spondylolithesis s/p spinal fusion 06/16/18 (Dr Soler), patient was admitted from the emergency department for intractable back pain with inability to ambulate. Vital Signs Period Temp Pulse Resp BP Sys/Crane Pulse Ox Last 24 Hr 97.7 F-98.1 F 77-89 17-19 137-190/64-104 96-99 GENERAL: The patient is awake, alert, and fully oriented, in no acute distress. HEAD: Normal with no signs of trauma. EYES: PERRL, extraocular movements intact, sclera anicteric, conjunctiva clear. No ptosis. ENT: Ears normal, nares patent, oropharynx clear without exudates, moist mucous membranes. NECK: Trachea midline, full range of motion, supple. LUNGS: Breath sounds equal, clear to auscultation bilaterally, no wheezes, no crackles, no accessory muscle use. HEART: Regular rate and rhythm, S1, S2 without murmur, rub or gallop. ABDOMEN: Soft, nontender, nondistended, normoactive bowel sounds, no guarding, no rebound, no hepatosplenomegaly, no masses. EXTREMITIES: 2+ pulses, warm, well-perfused, no edema. NEUROLOGICAL: Cranial nerves II through XII grossly intact. Normal speech, gait not observed. PSYCH: Normal mood, normal affect. SKIN: surgial site to distal lumbar spine, steri-strips intact, no erythema no drainage noted, Warm, dry, normal turgor, no rashes or lesions noted Laboratory Results - last 24 hr 06/20/18 06/20/18 07:30 12:20 Creatine Kinase 303 Creatine Kinase Index 0.4 CK-MB (CK-2) 1.5 Urine Color Yellow Urine Appearance Clear Urine pH 7.0 Ur Specific [place] 1.020 Urine Protein Negative Urine Glucose (UA) Negative Urine Ketones Negative Urine Blood Negative Urine Nitrite Negative Urine Bilirubin Negative Urine Urobilinogen 0.2 Ur Leukocyte Esterase Negative Active Medications Generic Name Dose Route Start Last Admin Trade Name Freq PRN Reason Stop Dose Admin Acetaminophen 650 mg 06/18/18 16:37 06/20/18 15:42 Tylenol - PO 650 mg Q6H PRN Administration PAIN LEVEL 1-5 Dexamethasone Sodium Phosphate 10 mg 06/21/18 10:00 06/21/18 09:14 Decadron Injection - IVPUSH 10 mg Q8H-IV DEYANIRA Administration Docusate Sodium 100 mg 06/19/18 14:15 06/21/18 06:05 Colace - PO 100 mg TID DEYANIRA Administration Furosemide 40 mg 06/18/18 16:30 06/21/18 09:14 Lasix - PO 40 mg DAILY DEYANIRA Administration Gabapentin 600 mg 06/21/18 07:26 Neurontin - PO TID DEYANIRA Ketorolac Tromethamine 30 mg 06/21/18 08:56 Toradol Injection - IVPUSH 06/23/18 22:59 TID PRN PAIN LEVEL 1-5 Labetalol HCl 400 mg 06/18/18 22:00 06/21/18 09:13 Normodyne - PO 400 mg BID DEYANIRA Administration Minoxidil 10 mg 06/18/18 22:00 06/20/18 22:06 Loniten - PO 10 mg HS DEYANIRA Administration Oxycodone HCl 5 mg 06/18/18 16:36 06/20/18 21:00 Roxicodone - PO 5 mg Q4H PRN Administration PAIN LEVEL 6-10 Polyethylene Glycol 17 gm 06/19/18 14:15 06/21/18 09:14 Miralax (For Daily Use) - PO Not Given DAILY DEYANIRA Senna 1 tab 06/19/18 22:00 06/20/18 21:48 Senna - PO 1 tab HS DEYANIRA Administration ASSESSMENT/PLAN: 1.MS intractable lower back pain - continue neurontin, decadron, continue torodol 30 mg IVP prn, Oxycodone 5 mg PO q4H PRN for pain > 6-10, Acetaminophen 650 mg PO Q6H PRN for pain < 1-5 - pt is unable to ambulate with physical therapy, discussed with Dr Soler's service, (RICHA Valle) will continue another 24 hours of narcotic/non-narcotic pain managment, if unsuccessful, pt will require a L5 screw revision with Dr Soler. - Dr. Martinez consulted and following 2. HTN - closer to goal - Continue Labetalol 400 mg PO BID - Continue Lasix 40 mp PO qday - Continue Minoxidil 10 mg PO QHS 3. Constipation - continue bowel regimen 4. DVT Prophylaxis --SCDs, OOB, ambulation --Mechanical prophylaxis only Dispo: pt currently requires further inpatient observation. FULL CODE
[2018-06-21 07:55] LABS: HEMATOCRIT 36.4 % (35.4-49); LYMPH % 9.4 % (8-40); MCH 25.4 pg (25.7-33.7); MEAN CELL VOLUME 79.2 fl (80-96); MEAN PLT VOLUME 8.8 fl (7.5-11.1); MONO % 4.5 % (3.8-10.2); PLATELET COUNT 331 K/MM3 (134-434); RBC 4.59 M/mm3 (4.00-5.60); RDW 21.4 % (11.9-15.9); WHITE BLOOD COUNT 5.4 K/mm3 (4.0-10.8)
[2018-06-21 08:10] LABS: ANION GAP 8 MMOL/L (8-16); BLOOD UREA NITROGEN 31 mg/dl (7-18); CALCIUM 9.3 mg/dl (8.4-10.2); CHLORIDE 103 mmol/L (98-107); CO2 26 mmol/L (22-28); CREATININE 0.9 mg/dl (0.6-1.3); GLUCOSE,RANDOM 127 mg/dl (74-106); MAGNESIUM 2.2 mg/dL (1.8-2.4); PHOSPHOROUS 4.1 mg/dl (2.5-4.6); POTASSIUM 4.2 mmol/L (3.5-5.1); SODIUM 137 mmol/L (136-145)
[2018-06-21] MEDS: diazePAM 5 MG TABLET PO SCH ×2 (08:13)
[2018-06-21] MEDS ORDERED: PT OWN MED DRAWER 7, Y5N ONE ×2 (09:02→21:38)
[2018-06-21] MEDS: LABETALOL HCL 200 MG TABLET (FP) PO SCH ×2 (09:13→21:52)
[2018-06-21] MEDS: DEXAMETHASONE SOD PHOSPHATE 10 MG/1 ML VIAL IVPUSH SCH ×2 (09:14→17:39)
[2018-06-21] MEDS: FUROSEMIDE 40 MG TABLET (FP) PO SCH (09:14)
[2018-06-21] MEDS: POLYETHYLENE GLYCOL 3350 119 GM BTL PO SCH (09:14)
[2018-06-21] MEDS ORDERED: oxyCODONE HCL 10 MG SUSTAINED ACTING TABLET PO ONE (14:00)
[2018-06-21] MEDS: ACETAMINOPHEN 325 MG TABLET (FP) PO SCH ×2 (14:21→20:03)
[2018-06-21] MEDS: oxyCODONE HCL 5 MG TABLET PO PRN (16:55)
[2018-06-21] MEDS: KETOROLAC TROMETHAMINE 30 MG/1 ML VIAL IVPUSH PRN (16:56)
[2018-06-21] MEDS: SENNOSIDES 8.6MG TABLET (FP) PO SCH (21:52)
[2018-06-21] MEDS: MINOXIDIL 10 MG TABLET PO SCH (21:52)
[2018-06-22] MEDS: DEXAMETHASONE SOD PHOSPHATE 10 MG/1 ML VIAL IVPUSH SCH ×2 (02:49→09:47)
[2018-06-22] MEDS: ACETAMINOPHEN 325 MG TABLET (FP) PO SCH ×2 (02:49→08:30)
[2018-06-22] MEDS: GABAPENTIN 300 MG CAPSULE (FP) PO SCH ×3 (06:02→22:21)
[2018-06-22] MEDS: oxyCODONE HCL 10 MG SUSTAINED ACTING TABLET PO SCH ×2 (06:03→18:06)
[2018-06-22] MEDS: DOCUSATE SODIUM 100 MG CAPSULE (FP) PO SCH ×3 (06:04→22:22)
[2018-06-22] MEDS: LABETALOL HCL 200 MG TABLET (FP) PO SCH ×2 (09:46→22:22)
[2018-06-22] MEDS: FUROSEMIDE 40 MG TABLET (FP) PO SCH (09:46)
[2018-06-22] MEDS: diazePAM 5 MG TABLET PO PRN (09:46)
[2018-06-22] MEDS: oxyCODONE HCL 5 MG TABLET PO PRN (09:46)
[2018-06-22] MEDS: POLYETHYLENE GLYCOL 3350 119 GM BTL PO SCH (09:47)
--- NOTE | 2018-06-22 12:21 | PN ---
Physical Exam: SUBJECTIVE: Patient seen and examined, patient reports improvement of lower back pain, ambulated 40 feet today with walker in physical therapy OBJECTIVE:patient is a 48 year old male with a PMH significant for HTN, Anemia, L5/S1 spondylolithesis s/p spinal fusion 06/16/18 (Dr Soler), patient was admitted from the emergency department for intractable back pain with inability to ambulate. Vital Signs Period Temp Pulse Resp BP Sys/Crane Pulse Ox Last 24 Hr 97.4 F-98.4 F 70-98 16-20 138-172/70-92 96-98 GENERAL: The patient is awake, alert, and fully oriented, in no acute distress. HEAD: Normal with no signs of trauma. EYES: PERRL, extraocular movements intact, sclera anicteric, conjunctiva clear. No ptosis. ENT: Ears normal, nares patent, oropharynx clear without exudates, moist mucous membranes. NECK: Trachea midline, full range of motion, supple. LUNGS: Breath sounds equal, clear to auscultation bilaterally, no wheezes, no crackles, no accessory muscle use. HEART: Regular rate and rhythm, S1, S2 without murmur, rub or gallop. ABDOMEN: Soft, nontender, nondistended, normoactive bowel sounds, no guarding, no rebound, no hepatosplenomegaly, no masses. EXTREMITIES: 2+ pulses, warm, well-perfused, no edema. NEUROLOGICAL: Cranial nerves II through XII grossly intact. Normal speech, gait not observed. PSYCH: Normal mood, normal affect. SKIN: surgial site to distal lumbar spine, steri-strips intact, no erythema no drainage noted, Warm, dry, normal turgor, no rashes or lesions noted Active Medications Generic Name Dose Route Start Last Admin Trade Name Freq PRN Reason Stop Dose Admin Dexamethasone Sodium Phosphate 10 mg 06/21/18 10:00 06/22/18 09:47 Decadron Injection - IVPUSH 10 mg Q8H-IV DEYANIRA Administration Diazepam 5 mg 06/21/18 13:28 06/22/18 09:46 Valium - PO 5 mg Q8H PRN Administration MUSCLE SPASMS Docusate Sodium 100 mg 06/19/18 14:15 06/22/18 06:04 Colace - PO 100 mg TID DEYANIRA Administration Furosemide 40 mg 06/18/18 16:30 06/22/18 09:46 Lasix - PO 40 mg DAILY DEYANIRA Administration Gabapentin 600 mg 06/21/18 07:26 06/22/18 06:02 Neurontin - PO 600 mg TID DEYANIRA Administration Ketorolac Tromethamine 30 mg 06/21/18 08:56 06/21/18 16:56 Toradol Injection - IVPUSH 06/23/18 22:59 30 mg TID PRN Administration PAIN LEVEL 1-5 Labetalol HCl 400 mg 06/18/18 22:00 06/22/18 09:46 Normodyne - PO 400 mg BID DEYANIRA Administration Minoxidil 10 mg 06/18/18 22:00 06/21/18 21:52 Loniten - PO 10 mg HS DEYANIRA Administration Oxycodone HCl 5 mg 06/18/18 16:36 06/22/18 09:46 Roxicodone - PO 5 mg Q4H PRN Administration PAIN LEVEL 6-10 Oxycodone HCl 10 mg 06/22/18 06:00 06/22/18 06:03 Oxycontin - PO 10 mg BID@0600,1800 DEYANIRA Administration Polyethylene Glycol 17 gm 06/19/18 14:15 06/22/18 09:47 Miralax (For Daily Use) - PO 17 gm DAILY DEYANIRA Administration Senna 1 tab 06/19/18 22:00 06/21/18 21:52 Senna - PO 1 tab HS DEYANIRA Administration CXR: Unremarkable for acute chest pathology ECG: Did not indicative of acute ischemic event Lumbar Spine CT (without contrast): No fracture or hardware defect visualized ASSESSMENT/PLAN: 1.MS intractable lower back pain - improving, patient is able to ambulate only 40feet with walker, continue neurontin, torodol 30 mg IVP prn, Oxycodone 5 mg PO q4H PRN for pain > 6-10, with oxycontin, Acetaminophen 650 mg PO Q6H PRN for pain < 1-5 - discussed with Dr. Soler, patient will require outpatient rehab, case management consultes - Dr. Martinez consulted and following 2. HTN - above goal secondary to pain - Continue Labetalol 400 mg PO BID - Continue Lasix 40 mp PO qday - Continue Minoxidil 10 mg PO QHS 3. Constipation - continue bowel regimen 4. DVT Prophylaxis --SCDs, OOB, ambulation --Mechanical prophylaxis only Dispo: pt currently requires further inpatient observation. FULL CODE
[2018-06-22] MEDS ORDERED: PT OWN MED DRAWER 7, Y5N ONE (21:39)
[2018-06-22] MEDS: SENNOSIDES 8.6MG TABLET (FP) PO SCH (22:21)
[2018-06-22] MEDS: MINOXIDIL 10 MG TABLET PO SCH (22:22)
[2018-06-23] MEDS: oxyCODONE HCL 10 MG SUSTAINED ACTING TABLET PO SCH ×2 (06:24→17:24)
[2018-06-23] MEDS: DOCUSATE SODIUM 100 MG CAPSULE (FP) PO SCH ×3 (06:25→21:52)
[2018-06-23] MEDS: GABAPENTIN 300 MG CAPSULE (FP) PO SCH ×3 (06:25→21:52)
[2018-06-23] MEDS: LABETALOL HCL 200 MG TABLET (FP) PO SCH ×2 (10:02→21:52)
[2018-06-23] MEDS: oxyCODONE HCL 5 MG TABLET PO PRN (10:02)
[2018-06-23] MEDS: FUROSEMIDE 40 MG TABLET (FP) PO SCH (10:03)
[2018-06-23] MEDS: POLYETHYLENE GLYCOL 3350 119 GM BTL PO SCH (10:03)
[2018-06-23] MEDS: RANITIDINE HCL 150 MG TABLET (FP) PO SCH (10:03)
[2018-06-23] MEDS: KETOROLAC TROMETHAMINE 30 MG/1 ML VIAL IVPUSH PRN (11:19)
[2018-06-23] MEDS: diazePAM 5 MG TABLET PO PRN (11:57)
--- NOTE | 2018-06-23 13:17 | DS ---
Physical Exam: SUBJECTIVE: Patient seen and examined, patient ambulated hallway with walker and the assistance of one person OBJECTIVE: patient is a 48 year old male with a PMH significant for HTN, Anemia , L5/S1 spondylolithesis s/p spinal fusion 2 days ago presented to [facility] c/o worsening left leg pain and weakness. He states he was able to walk directly following the procedure felt a sharp pain as soon as he started to climb the stairs when he arrived at home. He describes the pain as a sharp constant pain which radiates the along the whole length of his posterior left leg when he bears weight on his left foot. He was prescribed Tramadol and Valium post op which he reports did not control his pain. He called his surgeon Dr. Martinez and he switched the Tramadol to Percocet. Patient reports that the Percocet did not help him. He was brought by ambulance to the ED this morning when he could no longer stand the pain. Upon admission, he was given Percocet 5/ 325 x 1 and Torodol 60 mg IM when he reports helped temporarily resolve his pain. He was also given 1 mg of Ativan for anxiety. He reports he was sleeping for most of the evening until he woke up about 15 minutes ago and his pain had returned. Denies fever, chills, light-headedness, dizziness, SOB, n/v, abdominal pain. Denies numbness, tingling, or saddle anesthesia. Denies bowel or urinary incontinence. Denies back pain. ER course was notable for: (1) Percocet 5/325 x 1, Torodol 60 mg IM, and Ativan 1 mg Vital Signs Period Temp Pulse Resp BP Sys/Crane Pulse Ox Last 24 Hr 97.6 F-97.7 F 68-86 16-18 133-176/52-101 97-98 PHYSICAL EXAM GENERAL: The patient is awake, alert, and fully oriented, in no acute distress. HEAD: Normal with no signs of trauma. EYES: PERRL, extraocular movements intact, sclera anicteric, conjunctiva clear. No ptosis. ENT: Ears normal, nares patent, oropharynx clear without exudates, moist mucous membranes. NECK: Trachea midline, full range of motion, supple. LUNGS: Breath sounds equal, clear to auscultation bilaterally, no wheezes, no crackles, no accessory muscle use. HEART: Regular rate and rhythm, S1, S2 without murmur, rub or gallop. ABDOMEN: Soft, nontender, nondistended, normoactive bowel sounds, no guarding, no rebound, no hepatosplenomegaly, no masses. EXTREMITIES: 2+ pulses, warm, well-perfused, no edema. NEUROLOGICAL: Cranial nerves II through XII grossly intact. Normal speech, gait not observed. PSYCH: Normal mood, normal affect. SKIN: surgial site to distal lumbar spine, steri-strips intact, no erythema no drainage noted, Warm, dry, normal turgor, no rashes or lesions noted LABS CBC WBC 5.4 K/mm3 (4.0-10.8) 06/21/18 06:40 RBC 4.59 M/mm3 (4.00-5.60) 06/21/18 06:40 Hgb 11.6 GM/dl (11.7-16.9) L 06/21/18 06:40 Hct 36.4 % (35.4-49) 06/21/18 06:40 MCV 79.2 fl (80-96) L 06/21/18 06:40 MCH 25.4 pg (25.7-33.7) L 06/21/18 06:40 MCHC 32.0 g/dl (32.0-35.9) 06/21/18 06:40 RDW 21.4 % (11.9-15.9) H 06/21/18 06:40 Plt Count 331 K/MM3 (134-434) D 06/21/18 06:40 MPV 8.8 fl (7.5-11.1) 06/21/18 06:40 Absolute Neuts (auto) 4.7 K/mm3 06/21/18 06:40 Neutrophils % 86.0 % (42.8-82.8) H D 06/21/18 06:40 Lymphocytes % 9.4 % (8-40) D 06/21/18 06:40 Monocytes % 4.5 % (3.8-10.2) 06/21/18 06:40 Eosinophils % 0.0 % (0-4.5) D 06/21/18 06:40 Basophils % 0.1 % (0-2.0) 06/21/18 06:40 CMP Sodium 137 mmol/L (136-145) 06/21/18 06:40 Potassium 4.2 mmol/L (3.5-5.1) 06/21/18 06:40 Chloride 103 mmol/L (98-107) 06/21/18 06:40 Carbon Dioxide 26 mmol/L (22-28) 06/21/18 06:40 Anion Gap 8 MMOL/L (8-16) 06/21/18 06:40 BUN 31 mg/dl (7-18) H 06/21/18 06:40 Creatinine 0.9 mg/dl (0.6-1.3) 06/21/18 06:40 Creat Clearance w eGFR > 60 (>60) 06/21/18 06:40 Random Glucose 127 mg/dl (74-106) H D 06/21/18 06:40 Calcium 9.3 mg/dl (8.4-10.2) 06/21/18 06:40 Phosphorus 4.1 mg/dl (2.5-4.6) 06/21/18 06:40 Magnesium 2.2 mg/dL (1.8-2.4) 06/21/18 06:40 Total Bilirubin 1.4 mg/dl (0.2-1.0) H 06/19/18 07:00 AST 25 U/L (10-42) 06/19/18 07:00 ALT 29 U/L (10-40) 06/19/18 07:00 Alkaline Phosphatase 53 U/L (32-92) 06/19/18 07:00 Creatine Kinase 303 IU/L (26-308) 06/20/18 07:30 Creatine Kinase Index 0.4 % (0.0-5.0) 06/20/18 07:30 CK-MB (CK-2) 1.5 ng/mL (0.3-4.0) 06/20/18 07:30 Troponin I < 0.03 ng/ml (0.00-0.06) 06/18/18 15:23 Total Protein 6.3 g/dl (6.4-8.3) L 06/19/18 07:00 Albumin 3.3 g/dl (3.5-5.0) L 06/19/18 07:00 CXR: Unremarkable for acute chest pathology ECG: Did not indicative of acute ischemic event Lumbar Spine CT (without contrast): No fracture or hardware defect visualized HOSPITAL COURSE: 1.MS intractable lower back pain - improved, patient ambulated the hallway with the assistance of 1 person, pain was managed with neurontin, torodol 30 mg IVP prn, Oxycodone 5 mg PO q4H PRN for pain > 6-10, with oxycontin, Acetaminophen 650 mg PO Q6H PRN for pain < 1- 5 - Dr. Martinez consulted and following, recommends short term rehab at [place] 2. HTN - above goal secondary to pain - Continue Labetalol 400 mg PO BID - Continue Lasix 40 mp PO qday - Continue Minoxidil 10 mg PO QHS 3. Constipation - continue bowel regimen PLAN - discharge to [facility] - return precautions reviewed Date of Admission:06/20/18 Date of Discharge: 06/23/18 Minutes to complete discharge: 45 Discharge Summary Reason For Visit: INTRACTABLE PAIN Current Active Problems History of spinal fusion (Acute) Intractable pain (Acute) Condition: Stable - Instructions Diet, Activity, Other Instructions: you were admitted to the hospital for intractable back pain continue naproxyn for minimal pain, please take naproxyn with food valium for muscle spasms as needed oxycodone for severe pain continue neurontin daily continue your blood pressure medications as prescribed please follow up with Dr Soler within 5 days if any new or persistent symptoms develop please return to the emergency department Referrals: Mohan Soler MD [Staff Physician] - Disposition: VNS/HOME HEALTH CARE - Home Medications Comprehensive Discharge Medication List: Ambulatory Orders Labetalol HCl [Normodyne -] 400 mg PO BID 05/10/18 Minoxidil [Minoxidil -] 10 mg PO HS 05/10/18 Diazepam [Valium] 2 mg PO TID PRN #24 tablet MDD 3 06/16/18 Furosemide 40 mg PO DAILY 06/16/18 Hydrocodone/Acetaminophen [Hydrocodone-Acetamin 5-325 mg] 1 each PO ASDIR PRN - Discharge Referral Referred to [facility] No
[2018-06-23] MEDS ORDERED: PT OWN MED DRAWER 7, Y5N ONE (21:02)
[2018-06-23] MEDS: SENNOSIDES 8.6MG TABLET (FP) PO SCH (21:52)
[2018-06-23] MEDS: MINOXIDIL 10 MG TABLET PO SCH (21:53)
[2018-06-24] MEDS: oxyCODONE HCL 5 MG TABLET PO PRN ×2 (02:06→12:20)
[2018-06-24] MEDS: diazePAM 5 MG TABLET PO PRN ×2 (02:08→12:23)
[2018-06-24] MEDS: DOCUSATE SODIUM 100 MG CAPSULE (FP) PO SCH ×2 (06:02→13:45)
[2018-06-24] MEDS: GABAPENTIN 300 MG CAPSULE (FP) PO SCH ×2 (06:02→13:45)
[2018-06-24] MEDS: oxyCODONE HCL 10 MG SUSTAINED ACTING TABLET PO SCH (06:02)
--- NOTE | 2018-06-24 10:47 | PN ---
Physical Exam: SUBJECTIVE: Patient seen and examined, patient is agitated, was accepted to [facility] yesterday, however, he is waiting for a bed at [facility] OBJECTIVE: :patient is a 48 year old male with a PMH significant for HTN, Anemia, L5/S1 spondylolithesis s/p spinal fusion 06/16/18 (Dr Soler), patient was admitted from the emergency department for intractable back pain with inability to ambulate. Vital Signs Period Temp Pulse Resp BP Sys/Crane Pulse Ox Last 24 Hr 97.6 F-98.0 F 66-79 18-18 106-150/65-71 96-100 GENERAL: unkempt, patient is awake, alert, and fully oriented, agitated. HEAD: Normal with no signs of trauma. EYES: PERRL, extraocular movements intact, sclera anicteric, conjunctiva clear. No ptosis. ENT: Ears normal, nares patent, oropharynx clear without exudates, moist mucous membranes. NECK: Trachea midline, full range of motion, supple. LUNGS: Breath sounds equal, clear to auscultation bilaterally, no wheezes, no crackles, no accessory muscle use. HEART: Regular rate and rhythm, S1, S2 without murmur, rub or gallop. ABDOMEN: Soft, nontender, nondistended, normoactive bowel sounds, no guarding, no rebound, no hepatosplenomegaly, no masses. EXTREMITIES: 2+ pulses, warm, well-perfused, no edema. NEUROLOGICAL: Cranial nerves II through XII grossly intact. Normal speech, gait not observed. PSYCH: Normal mood, normal affect. SKIN: surgial site to distal lumbar spine, steri-strips intact, no erythema no drainage noted, Warm, dry, normal turgor, no rashes or lesions noted, Warm, dry , normal turgor, no rashes or lesions noted Active Medications Generic Name Dose Route Start Last Admin Trade Name Freq PRN Reason Stop Dose Admin Diazepam 5 mg 06/21/18 13:28 06/24/18 02:08 Valium - PO 5 mg Q8H PRN Administration MUSCLE SPASMS Docusate Sodium 100 mg 06/19/18 14:15 06/24/18 06:02 Colace - PO 100 mg TID DEYANIRA Administration Furosemide 40 mg 06/18/18 16:30 06/23/18 10:03 Lasix - PO 40 mg DAILY DEYANIRA Administration Gabapentin 600 mg 06/21/18 07:26 06/24/18 06:02 Neurontin - PO 600 mg TID DEYANIRA Administration Labetalol HCl 400 mg 06/18/18 22:00 06/23/18 21:52 Normodyne - PO 400 mg BID DEYANIRA Administration Minoxidil 10 mg 06/18/18 22:00 06/23/18 21:53 Loniten - PO 10 mg HS DEYANIRA Administration Oxycodone HCl 5 mg 06/18/18 16:36 06/24/18 02:06 Roxicodone - PO 5 mg Q4H PRN Administration PAIN LEVEL 6-10 Oxycodone HCl 10 mg 06/22/18 06:00 06/24/18 06:02 Oxycontin - PO 10 mg BID@0600,1800 DEYANIRA Administration Polyethylene Glycol 17 gm 06/19/18 14:15 06/23/18 10:03 Miralax (For Daily Use) - PO 17 gm DAILY DEYANIRA Administration Ranitidine HCl 150 mg 06/23/18 10:00 06/23/18 10:03 Zantac - PO 150 mg DAILY DEYANIRA Administration Senna 1 tab 06/19/18 22:00 06/23/18 21:52 Senna - PO 1 tab HS DEYANIRA Administration CXR: Unremarkable for acute chest pathology ECG: Did not indicative of acute ischemic event Lumbar Spine CT (without contrast): No fracture or hardware defect visualized ASSESSMENT/PLAN: 1.MS intractable lower back pain - improving, patient is able to ambulate only 40feet with walker, continue neurontin, torodol 30 mg IVP prn, Oxycodone 5 mg PO q4H PRN for pain > 6-10, with oxycontin, Acetaminophen 650 mg PO Q6H PRN for pain < 1-5 - discussed with Dr. Soler, patient will requie inpatient rehab at [facility] - Dr. Martinez consulted and following 2. HTN - above goal secondary to pain - Continue Labetalol 400 mg PO BID - Continue Lasix 40 mp PO qday - Continue Minoxidil 10 mg PO QHS 3. Constipation - continue bowel regimen 4. DVT Prophylaxis --SCDs, OOB, ambulation --Mechanical prophylaxis only awaiting a bed at [facility] rehab, patient can be discharged upon bed availability.
[2018-06-24] MEDS: POLYETHYLENE GLYCOL 3350 119 GM BTL PO SCH (12:18)
[2018-06-24] MEDS: LABETALOL HCL 200 MG TABLET (FP) PO SCH (12:18)
[2018-06-24] MEDS: RANITIDINE HCL 150 MG TABLET (FP) PO SCH (12:18)
[2018-06-24] MEDS: FUROSEMIDE 40 MG TABLET (FP) PO SCH (12:19)
[2018-06-24 14:36] VITALS: BP 143/73; PULSE 81; TEMP 98.4
== END 2018-06-24 15:30 | DRG 861 ==
LOC: FER 12:15 → UNDOADMOB 14:36 → FM/S 14:36 → OBSVTOIN 06-20 12:11 → FM/S 06-23 12:14
PROVIDERS: ADMIT Hospitalist; ATTEND Nurse Practitioner Family
DX: G89.18 Other acute postprocedural pain (principal); M79.605 Pain in left leg; M54.5 Low back pain; I10 Essential (primary) hypertension; R73.9 Hyperglycemia, unspecified; D64.9 Anemia, unspecified; R20.0 Anesthesia of skin; K59.00 Constipation, unspecified
CPT/HCPCS: 36415; 71045-TC-FY; 72131-TC; 80048; 80053; 81003; 82550; 82553; 83735; 84100; 84484; 85025; 85610; 85730; 93005; 97116-GP; 97162-GP; 99285-25; G0378; J0475; J1100